=== PATIENT | male | born 1965 | race Caucasian/White ===

== ENCOUNTER 2019-12-31 11:09 | Emergency (ER) | payer BC, OTHER ==
[~2019-12-31] VITALS: Ht 175.3 cm; Wt 93.5 kg
--- NOTE | 2019-12-31 11:40 | NUR ---
TASK RN: ECG OBTAINED BY EMT IN TRIAGE
--- NOTE | 2019-12-31 11:40 | NUR ---
LATE ENTRY FOR 1135 PT TO ROOM FROM [facility]
[2019-12-31] MEDS ORDERED: SODIUM CHLORIDE FLUSH 10ML SYR IVF ONE (12:00)
--- NOTE | 2019-12-31 12:02 | NUR ---
RECEIVED BEDSIDE REPORT FROM FANNIE ASHTON. PER REPORT PT HAD SOB X 3 DAYS. WENT TO [facility] AND HAD PALPATATIONS THERE. PT WAS SENT TO ER.
[2019-12-31] MEDS ORDERED: ALLO300T PO (12:14)
[2019-12-31] MEDS ORDERED: OMEG-72 PO (12:15)
[2019-12-31] MEDS ORDERED: LISI-170 PO (12:15)
--- NOTE | 2019-12-31 12:15 | NUR ---
TASK RN: Palpitations, SOB, lightheaded, INTERMITTENT NAUSEA x 3 days. Sent by urgent care NO CARDIAC HX. FELT SIMILIAR SYMPTOMS PRIOR TO STARTING BLOOD PRESSURE MEDS LAST MAY PIV PLACED FROM WHICH LABS WERE DRAWN VSS ON PAST DUE ACCOUNTS CLERK
[2019-12-31 12:24] LABS: BASOPHILS # (AUTO) 0.04 x10^3/uL (0-0.1); BASOPHILS % (AUTO) 1 % (0-1); EOSINOPHILS % (AUTO) 1 % (1-7); LYMPHOCYTES # (AUTO) 2.85 x10^3/uL (1-3.4); LYMPHOCYTES % (AUTO) 36 % (22-44); MD NO; MEAN CORPUSCULAR HEMOGLOBIN 34.4 pg (27.5-34.5); MEAN CORPUSCULAR HGB CONC 33.5 g/dL (33.2-36.2); MEAN CORPUSCULAR VOLUME 102.6 fL (81-97); MEAN PLATELET VOLUME 9.3 fL (7.4-10.4); MONOCYTES # (AUTO) 0.76 x10^3/uL (0.2-0.8); MONOCYTES % (AUTO) 9 % (2-9); NEUTROPHILS # (AUTO) 4.27 x10^3/uL (1.8-6.8); NEUTROPHILS % (AUTO) 53 % (42-75); PLATELET COUNT 108 x10^3/uL (130-400); RED BLOOD COUNT 5.23 x10^6/uL (4.38-5.82); RED CELL DISTRIBUTION WIDTH 14.3 % (9.4-14.8)
[2019-12-31 12:35] LABS: ALANINE AMINOTRANSFERASE 41 U/L (12-78); ALBUMIN 4.1 g/dL (3.4-5.0); ANION GAP 4 mmol/L (5-15); CHLORIDE 109 mmol/L (98-107)
[2019-12-31 12:40] LABS: ALKALINE PHOSPHATASE 52 U/L (45-117); BILIRUBIN,TOTAL 1.1 mg/dL (0.2-1.0); CREATININE 1.18 mg/dL (0.7-1.3); TOTAL PROTEIN 7.4 g/dL (6.4-8.2); TROPONIN I < 0.015 ng/mL (0.000-0.045)
[2019-12-31 12:55] VITALS: BP 123/83
--- NOTE | 2019-12-31 12:55 | NUR ---
PT RESTING ON GURNEY. CARDOZO. FRIEND BEDSIDE. NO NEEDS REQUESTED AT THIS TIME. Addendum: 12/31/19 at 1407 by TAMERA SIGNIFICANT OTHER BEDSIDE.
--- NOTE | 2019-12-31 14:07 | NUR ---
Patient/Caregiver given discharge instructions and they have confirmed that they understand the instructions. Patient ambulatory with steady gait. PT LEFT WITH ALL PERSONAL BELONGINGS. PIV D/C WITH TIP INTACT. PRESSURE DRESSING APPLIED.
== END 2019-12-31 14:09 | disposition home or self-care (01) ==
LOC: ED 13:31
DX: R42 Dizziness and giddiness (principal); R11.10 Vomiting, unspecified; R06.02 Shortness of breath; I10 Essential (primary) hypertension
CPT/HCPCS: 36415; 71045; 80053; 84443; 84484; 85025; 93005; 99284